=== PATIENT | male | born 1985 | race Caucasian/White ===

== ENCOUNTER 2023-04-21 10:21 | Emergency (ER) | payer OTHER ==
[2023-04-21] MEDS ORDERED: Lidocaine 1% PF 5 ML VIAL ONE ×2 (10:57→10:59)
[2023-04-21] MEDS ORDERED: HYDROcodone/Acetaminophen 10/325 mg Tablet ONE (11:33)
== END 2023-04-21 12:34 | disposition home or self-care (01) ==
LOC: ERS 10:21
DX: Z48.01 Encounter for change or removal of surgical wound dressing (principal); F17.210 Nicotine dependence, cigarettes, uncomplicated
CPT/HCPCS: 99283